=== PATIENT | male | born 1965 | race Caucasian/White ===

== ENCOUNTER 2024-11-18 09:25 | Emergency (ER) | payer MEDICAID ==
[~2024-11-18] VITALS: Ht 193 cm; Wt 81.0 kg
[~2024-11-18 09:25] MED LIST: NO HOME MEDS
--- NOTE | 2024-11-18 09:42 | Physician Documentation ---
History of Present Illness ~ Chief Complaint: Back Pain Stated Complaint: BACKPAIN Time Seen by MD: 09:28 Source: patient Mode of Arrival: POV Exam Limitations: no limitations HPI Mr. Eastman is a 59 y/o male who presents with c/o low back pain that started abruptly when transitioning from a seated to standing position. He denies rece nt trauma. No history of IVDU. Denies saddle anesthesia or new bowel/bladder dysfunction. No new weakness in lower extremities. No numbness/tingling. He denies a history of CA or recent unexplained weight loss. Received 30 mg IM Ketorolac by EMS en route and states that pain has decreased from a 10/10 to a 5/10. Medication Reconciliation Allergies: Coded Allergies: codeine (Verified Allergy, Severe, hives, 11/18/24) Miscellaneous Medications Home Med List (No Home Medications), (Reported) Past Medical History Past Medical History: No Pertinent History Drug Use: none Review of Systems ROS ROS negative other than what is stated in HPI Physical Exam Physical Exam Vital Signs: RN Vital Signs have been reviewed: Yes, Temperature: 97.2, Source: Oral, Heart Rate: 57, Respiratory Rate: 16, BP: 142/87, Pulse Oximetry: 95, Weight: 81.000 Oxygen Flow Rate: 0 Physical Exam VITALS: Reviewed and as above. GENERAL: Alert, no apparent distress. HEENT: Normocephalic, atraumatic, PERRL, EOMI, dry mucosa, no erythema RESPIRATORY: Lungs clear, normal breath sounds, no respiratory distress. CHEST: No accessory muscle use, no retractions CV: Regular rate, rhythm, no edema, no murmur, No: JVD GI: Soft, tenderness to the lower abdomen with palpation., bowels sounds present, no rebound, guarding, or rigidity BACK: + TTP to lower back (L spine region) MUSCULOSKELETAL No deformities, no edema SKIN: Warm and dry, no rash NEURO: Oriented x4, No motor or sensory deficit. 5/5 strength to lower extremities. PSYCH: Normal mood and affect, no agitation Progress Results/Orders Results/Orders Orders - AV HENSLEY MD Lidocaine 5% Patch (Lidoderm 5% Patch) (11/18/24 09:35) Lumbar Spine Limited (11/18/24 09:31) Completed Orders - AV HENSLEY MD Hydromorphone 1 Mg/Ml/Pf (Dilaudid Inj.) (11/18/24 09:35) Lumbar Spine Limited (11/18/24 09:31) Medications Received in ER Medications (Trade) Dose Ordered Sig/Heather Route PRN Reason Start Time Stop Time Status Last Admin Dose Admin (Lidoderm 5% Patch) 1 patch ONCE TP 11/18/24 09:35 11/18/24 10:08 1 PATCH Vital Signs 11/18/24 11/18/24 09:27 10:17 Temp 97.2 Pulse 57 48 Resp 16 16 B/P (MAP) 142/87 135/80 (98) Pulse Ox 95 95 O2 Flow Rate 0 0 EKG/XRAY/CT/US/VASC/MRI Bone/Soft Tissue X-Ray (Spine) : Interpreted By: self Views: 1 VIEW Indication: pain Location: lumbar spine Impression: normal Medical Decision Making Differential Dx:Considerations: Include: DJD, Fracture, Musculoskeletal pain, Strain Differential Diagnosis Mr. Eastman is a 59 y/o male who presents with c/o low back pain that started abruptly when transitioning from a seated to standing position. While here in the ED, he remained hemodynamically normal with ABC's intact and in NAD. He has no glaring red flags that was increase my suspicion for an acute spinal process. No saddle anesthesia. No lower extremity weakness. No now sensory deficits. No bowel or bladder dysfunction. Plain films of the L-spine are nonacute. Nothing to increase my suspicion for a pathologic fracture. He was treated symptomatically here in the ED with significant improvement in his symptoms. He is up ambulating in the department and feels much better. He is safe for d/c home. Will provide scripts for ongoing pain control. Given follow-up and return instructions. He voiced understanding and agreement with d/c instructions. Departure Disposition: HOME / SELF CARE / HOMELESS Impression: Primary Impression: Low back pain Condition: Improved Discharge Instructions: Acute Back Pain, Adult Referrals: NO PRIMARY CARE PROVIDER (PCP) Prescriptions Hydrocodone Bit/Acetaminophen 5/325 MG ([place] 5/325 MG) 5 Mg/325 Mg Tablet 1 TAB PO Q6H PRN for pain for 3 Days, #12 TAB Prov: AV HENSLEY MD 9/26/25 Lidocaine (Lidoderm) 5 % Adh..patch 1 PATCH TOP DAILY PRN for pain for 30 Days, #30 PATCH 0 Refills may wear up to 12 hours Prov: AV HENSLEY MD 11/18/24 Education Educated: Patient Educated regarding: diagnosis Additional Comment Please take medications as prescribed. Follow-up with your PCP and return to the ED if there are any additional concerns. Signature Scribe Signature: N/A Attestation: N/A AV HENSLEY MD Nov 18, 2024 09:41
--- NOTE | 2024-11-18 10:24 | RADIOLOGY REPORT ---
INDICATION: pain COMPARISON: None TECHNIQUE: 3 views of the lumbar spine were obtained. FINDINGS: The lumbar vertebral alignment is normal. Multilevel degenerative changes most severe at L4-L5 through L5-S1 causing moderate to severe neural foraminal and spinal canal stenosis No acute fracture, vertebral compression deformity or aggressive osseous lesions. The paravertebral soft tissues are grossly unremarkable. IMPRESSION: No acute fracture or subluxation.
[2024-11-18] MEDS ORDERED: HYDR-3965 PO (11:14)
[2024-11-18] MEDS ORDERED: LIDO-52 TOP (11:14)
[2024-11-18 11:25] VITALS: BP 140/89; PULSE 50; RESP 18; TEMP 97.2; O2SAT 98
== END 2024-11-18 11:25 | disposition home or self-care (01) ==
LOC: EDBD 09:26 → ER 09:26
DX: M54.50 Low back pain, unspecified (principal); Z88.5 Allergy status to narcotic agent
CPT/HCPCS: 72100; 99283